=== PATIENT | female | born 1990 | race Caucasian/White ===

== ENCOUNTER 2017-03-07 01:59 | Emergency (ER) | payer BC ==
[~2017-03-07] VITALS: Ht 162.6 cm; Wt 56.6 kg
[~2017-03-07 01:59] MED LIST: MTR600X PO; OXYC-57 PO
[2017-03-07 02:04] VITALS: TEMP 36.7; Ht 162.6 cm; Wt 56.6 kg
[2017-03-07] MEDS ORDERED: IBUP-1050 PO (02:19)
[2017-03-07] MEDS ORDERED: ONDANSETRON INJ 2 MG/ML 2 ML VIAL IV STA (02:21)
[2017-03-07] MEDS ORDERED: SODIUM CHLORIDE 0.9% 1000ML 1,000 ML IV ONE (02:30)
[2017-03-07] MEDS ORDERED: OPTIRAY 320 IV PRN (02:30)
[2017-03-07] MEDS ORDERED: MoRPHine SULFATE 4 MG/ML 1 ML CARP\\VIAL IV PRN (02:30)
[2017-03-07 02:37] LABS: URINE APPEARANCE CLEAR (CLEAR); URINE BILIRUBIN NEG (NEG); URINE COLOR YELLOW; URINE EPITHELIAL CELL AUTO 20-30 /lpf (0-5); URINE NITRITE NEG (NEG); URINE PH 5.5 (4.5-7.5); URINE SPECIFIC GRAVITY 1.011 (1.000-1.030); UROBILINOGEN NEG (NEG); ZZUR CULT IF INDIC CLEAN CATCH NO
[2017-03-07 02:41] LABS: MANUAL MICROSCOPIC REQUIRED? NO; REVIEW REQ? YES
[2017-03-07 02:54] LABS: BASO % 0.6 %; BASO ABS # 0.07 K/uL (0-0.2); COMPLETE YES; EOS % 2.5 %; HEMATOCRIT 42.4 % (37-47); IG% 0.3 %; LYMPH % 44.8 %; LYMPH ABS # 4.96 K/uL (1.2-3.4); MEAN CELL VOLUME 92.2 fL (80-100); MEAN CORPUSCULAR HEMOGLOBIN 32.4 pg (25-34); MEAN CORPUSCULAR HGB CONC 35.1 g/dl (32-36); MEAN PLATELET VOLUME 10.1 fL (7.4-10.4); MONO % 9.3 %; NEUT % 42.5 %; PLATELET COUNT 315 K/uL (130-400); WHITE BLOOD COUNT 11.08 K/uL (4.8-10.8)
[2017-03-07 03:43] LABS: BUN/CREATININE RATIO 8.1 (10-20); CALCIUM 8.4 mg/dl (8.5-10.1); CREATININE 0.79 mg/dl (0.60-1.20); POTASSIUM 3.6 mmol/L (3.5-5.1)
[2017-03-07 03:46] LABS: ALB/GLOB RATIO 1.1 (0.9-2)
[2017-03-07 05:40] VITALS: BP 101/64; PULSE 64; O2SAT 96
--- NOTE | 2017-03-07 05:58 | EMERGENCY ROOM VISIT NOTE ---
History First contact with patient: 02:07 Chief Complaint: VAGINAL BLEEDING Stated Complaint: RT ABD PAIN,VAG BLEEDING History of Present Illness The patient is a 26 year old female who presents to the Emergency Room with complaints of right lower quadrant abdominal pain for the past 3 days. The patient states that she had her menses last week, and then her bleeding stopped. She states over the past one day she has had a brownish vaginal discharge which is atypical for her. She has not had a fever or chills. No chest pain, chest tightness, or shortness of breath. She does not have upper abdominal pain, but states that she does have a past history of ectopic last year. She reports this resulted in emergency surgery with loss of her left ovary and left fallopian tube. The patient is sexually active and not on control. She has not had other abdominal surgeries other than her ectopic. She rates her pain a 6/10, dull, nonradiating. She has not taken anything [id number] for her symptoms. Review of Systems More than 10 systems were reviewed and otherwise negative with the exception of history of present illness. Past Medical/Surgical History Medical Problems: (1) Cervical radiculopathy (2) Migraines (3) Neck pain (4) Paresthesia of right arm (5) Paresthesias (6) Surgical Problems: (1) H/O tubal ligation (2) Tonsillectomy (3) [place] Teeth Removal Family History Diabetes mellitus FHx: cancer Social History Smoking Status: Current Every Day Smoker Alcohol Use: occasionally Drug Use: none Marital Status: Housing Status: lives with family Occupation Status: unemployed Current/Historical Medications Scheduled PRN Ibuprofen (Advil), 200-600 MG PO Q4H PRN for Pain Allergies Coded Allergies: No Known Allergies (Verified , NONE, 03/07/17) Physical Exam Vital Signs Date Time Temp Pulse Resp B/P Pulse Ox O2 Delivery O2 Flow Rate FiO2 03/07/17 05:40 64 20 101/64 96 03/07/17 04:44 77 18 113/74 97 Room Air 03/07/17 03:22 80 18 111/68 97 Room Air 03/07/17 02:04 36.7 110 18 136/86 96 Room Air Pain Rating (0-10): 6.0 Physical Exam VITALS: Vitals are noted on the nurse's note and reviewed by myself. Vital signs stable. GENERAL: Well-developed, well-nourished, white female, who is in no acute distress and resting comfortably. Patient is cooperative with the examination. HEAD: Normocephalic atraumatic. HEART: Regular rate and rhythm without murmurs gallops or rubs. LUNGS: Clear to auscultation bilaterally without wheezes, rales or rhonchi. No retractions or accessory muscle use. ABDOMEN: Positive normal bowel sounds x 4. Soft with positive right lower quadrant tenderness on palpation. No rebound or guarding. No CVA tenderness. MUSCULOSKELETAL: No muscle atrophy, erythema, or edema noted. Full range of motion without joint tenderness in all extremities. Medical Decision & Procedures ER Provider Diagnostic Interpretation: Preliminary Findings Only See Final Report For Complete Findings US PELVIC/ENDOVAG: Right ovarian follicles including dominant follicle measuring 1.6 cm. No evidence of right ovarian torsion. Left ovary not visualized. Small free fluid in the pelvis, nonspecific. Preliminary Findings Only See Final Report For Complete Findings CT ABDOMEN & PELVIS: Comparison: CT dated 10/07/2007. No bowel obstruction, significant bowel wall thickening or free air. No evidence of acute appendicitis. Probable right ovarian follicles. Correlate with pelvic ultrasound findings. Laboratory Results 03/07/17 02:35 Red Blood Count 4.60, Mean Corpuscular Volume 92.2, Mean Corpuscular Hemoglobin 32.4, Mean Corpuscular Hemoglobin Concent 35.1, Mean Platelet Volume 10.1, Neutrophils (%) (Auto) 42.5, Lymphocytes (%) (Auto) 44.8, Monocytes (%) (Auto) 9.3, Eosinophils (%) (Auto) 2.5, Basophils (%) (Auto) 0.6, Neutrophils # (Auto) 4.71, Lymphocytes # (Auto) 4.96, Monocytes # (Auto) 1.03, Eosinophils # (Auto) 0.28, Basophils # (Auto) 0.07 03/07/17 02:35 Test 03/07/17 02:10 03/07/17 02:35 Urine Color YELLOW Urine Appearance CLEAR (CLEAR) Urine pH 5.5 (4.5-7.5) Urine Specific Gerry 1.011 (1.000-1.030) Urine Protein NEG (NEG) Urine Glucose (UA) NEG (NEG) Urine Ketones NEG (NEG) Urine Occult Blood 3+ (NEG) Urine Nitrite NEG (NEG) Urine Bilirubin NEG (NEG) Urine Urobilinogen NEG (NEG) Urine Leukocyte Esterase NEG (NEG) Urine WBC (Auto) 1-5 /hpf (0-5) Urine RBC (Auto) 5-10 /hpf (0-4) Urine Hyaline Casts (Auto) 0 /lpf (0-5) Urine Epithelial Cells (Auto) 20-30 /lpf (0-5) Urine Bacteria (Auto) NEG (NEG) Urine Test NEG (NEG) White Blood Count 11.08 K/uL (4.8-10.8) Red Blood Count 4.60 M/uL (4.2-5.4) Hemoglobin 14.9 g/dL (12.0-16.0) Hematocrit 42.4 % (37-47) Mean Corpuscular Volume 92.2 fL (80-100) Mean Corpuscular Hemoglobin 32.4 pg (25-34) Mean Corpuscular Hemoglobin Concent 35.1 g/dl (32-36) Platelet Count 315 K/uL (130-400) Mean Platelet Volume 10.1 fL (7.4-10.4) Neutrophils (%) (Auto) 42.5 % Lymphocytes (%) (Auto) 44.8 % Monocytes (%) (Auto) 9.3 % Eosinophils (%) (Auto) 2.5 % Basophils (%) (Auto) 0.6 % Neutrophils # (Auto) 4.71 K/uL (1.4-6.5) Lymphocytes # (Auto) 4.96 K/uL (1.2-3.4) Monocytes # (Auto) 1.03 K/uL (0.11-0.59) Eosinophils # (Auto) 0.28 K/uL (0-0.5) Basophils # (Auto) 0.07 K/uL (0-0.2) RDW Standard Deviation 43.8 fL (36.4-46.3) RDW Coefficient of Variation 13.0 % (11.5-14.5) Immature Granulocyte % (Auto) 0.3 % Immature Granulocyte # (Auto) 0.03 K/uL (0.00-0.02) Anion Gap 9.0 mmol/L (3-11) Est Creatinine Clear Calc Drug Dose 93.2 ml/min Estimated GFR () 119.7 Estimated GFR (Non- 103.3 BUN/Creatinine Ratio 8.1 (10-20) Calcium Level 8.4 mg/dl (8.5-10.1) Total Bilirubin 0.2 mg/dl (0.2-1) Aspartate Amino Transf (AST/SGOT) 15 U/L (15-37) Alanine Aminotransferase (ALT/SGPT) 20 U/L (12-78) Alkaline Phosphatase 72 U/L (45-117) Total Protein 7.4 gm/dl (6.4-8.2) Albumin 3.8 gm/dl (3.4-5.0) Globulin 3.6 gm/dl (2.5-4.0) Albumin/Globulin Ratio 1.1 (0.9-2) Lipase 133 U/L (73-393) Medications Administered Medications (Trade) Dose Ordered Sig/Amanda Route Start Time Stop Time Status Last Admin Dose Admin Sodium Chloride (Nss 1000ml) 1,000 ml @ 999 mls/hr Q1H1M ONCE IV 03/07/17 02:30 03/07/17 03:30 DC 03/07/17 02:41 999 MLS/HR Morphine Sulfate (MoRPHine SULFATE INJ) 4 mg Q1H PRN IV 03/07/17 02:30 03/21/17 02:29 03/07/17 02:41 4 MG Ondansetron HCl (Zofran Inj) 4 mg NOW STAT IV 03/07/17 02:21 03/07/17 02:24 DC 03/07/17 02:41 4 MG ED Course Physical exam and history were performed. Nursing notes and EMR were reviewed. Patient appears to have right lower quadrant abdominal pain and tenderness on examination. IV access was established and labs were obtained. The patient was hydrated and medicated as above. Because of her symptoms I did elect to perform ultrasound and CT scan. The patient's blood work is as above and was reviewed. She does not have a significant elevated white blood cell count, gross anemia, bandemia, or significant electrolyte imbalance. Lipase and transaminases are nondiagnostic. Urine is without evidence of infection. The patient is not . Ultrasound shows ovarian follicles but no obvious SERVICE OFFICER etiology for the patient's discomfort. CT scan with contrast also returned without findings to suggest a surgical abdomen. The patient was monitored for several hours here in the emergency department, and she was able to rest very comfortably in her ER bed. Clinically I suspect that her symptoms are related to her menses and her ovarian follicles. She does not appear to have a surgical abdomen. The patient was asked to follow with her primary care physician or SERVICE OFFICER in the next 2-3 days for recheck of her condition. She may use [id number] analgesics for pain control. The patient was pleased with this plan and voiced understanding. She was discharged home under the care of her mother invited back to the ER anytime with any new, worsening, or concerning symptoms. The chart was completed utilizing [employer] Speech Voice Recognition Software. Grammatical errors, random word insertions, pronoun errors, and incomplete sentences are an occasional consequence of this system due to software limitations, ambient noise, and hardware issues. Any formal questions or concerns about the content, text, or information contained within the body of this dictation should be directly addressed to the provider for clarification. . Medical Decision Differential diagnosis: Etiologies such as appendicitis, diverticulitis, PUD, biliary pathology, UTI, pancreatitis, obstruction, mesenteric ischemia, aortic pathology, infections, inflammatory bowel disease, renal colic, as well as others were entertained. Impression Primary Impression: Abdominal pain Departure Information Dispostion Home / Self-Care Condition GOOD Forms HOME CARE DOCUMENTATION FORM, IMPORTANT VISIT INFORMATION Patient Instructions My [facility] Additional Instructions You were seen and evaluated today on an emergency basis only. This is not a substitute for, or an effort to provide, complete comprehensive medical care. It is not possible to recognize and treat all injuries or illnesses in a single emergency department visit. For this reason it is recommended that you followup with your primary care physician/SERVICE OFFICER this week for ongoing care and evaluation. For baseline pain relief you may alternate ibuprofen and acetaminophen every 4 hours for pain control. Take 600 mg ibuprofen (Advil) and then 4 hours later take 1000 mg acetaminophen (Tylenol). Do not take more than 3000 mg acetaminophen in a single day. You are welcome to return to the emergency department anytime with new, worsening, or concerning symptoms.
--- NOTE | 2017-03-07 06:03 | DIAGNOSTIC IMAGING REPORT ---
EXAMINATION: PELVIC ULTRASOUND CLINICAL HISTORY: RLQ abd pain PELVIC PAIN. NAUSEA. COMPARISON STUDY: 10/04/2016 FINDINGS: The uterus measured 8.7 cm.. The endometrial stripe measured 5 mm. The right ovary measured 4 x 3 cm. Normal vascular flow. The left ovary measured not well seen possibly due to overlying bowel content. There is no ultrasonographic evidence of ovarian torsion. It should be noted that ovarian torsion can be present with normal Doppler ultrasonographic findings. There was no evidence of pathologic free pelvic fluid. IMPRESSION: Poor visibility left ovary. Otherwise negative study Electronically signed by: Magen Rodriguez M.D. 03/07/2017 6:02 AM Dictated Date/Time: 03/07/2017 6:01 AM
--- NOTE | 2017-03-07 06:31 | DIAGNOSTIC IMAGING REPORT ---
ABDOMEN AND PELVIS CT WITH IV AND ORAL CONTRAST CT DOSE: 276.21 mGy.cm HISTORY: Pain. Nausea. RLQ abd pain TECHNIQUE: Multiaxial CT images of the abdomen and pelvis were performed following the use of intravenous and oral contrast. COMPARISON STUDY: 10/07/2007 FINDINGS: The lung bases are clear. The liver, spleen, gallbladder, pancreas, kidneys, and adrenal glands are within normal limits. No bowel wall thickening or obstruction. The pelvic organs are unremarkable. No suspicious lytic or blastic osseous lesions. Normal appendix. IMPRESSION: No significant abnormality identified within the abdomen or pelvis. Electronically signed by: Magen Rodriguez M.D. 03/07/2017 6:29 AM Dictated Date/Time: 03/07/2017 6:28 AM
== END 2017-03-07 05:40 | disposition home or self-care (01) ==
LOC: C.EDB 02:00
DX: R10.31 Right lower quadrant pain (principal); F17.200 Nicotine dependence, unspecified, uncomplicated; Z98.51 Tubal ligation status; Z98.890 Other specified postprocedural states; Z83.3 Family history of diabetes mellitus; Z80.9 Family history of malignant neoplasm, unspecified